=== PATIENT | male | born 1985 | race African-American/Black ===

== ENCOUNTER 2016-08-25 21:45 | Emergency (ER) | payer OTHER ==
[~2016-08-25] VITALS: Ht 180.3 cm; Wt 77.0 kg
[2016-08-25] MEDS ORDERED: MAGNESIUM/ALUMINUM HYDROXIDE/SIMETHICONE 30ML UDC PO ONE (23:15)
[2016-08-25] MEDS ORDERED: VISCOUS LIDOCAINE 2% 15 ML UDC PO ONE (23:15)
[2016-08-25] MEDS ORDERED: IBUPROFEN 400MG TABLET PO ONE (23:15)
[2016-08-25 23:30] LABS: EOSINOPHILS % 0.6 % (0.0-5.0); HEMATOCRIT. 36.6 % (42.0-52.0); HEMOGLOBIN. 11.7 g/dL (14.0-18.0); LYMPHOCYTES % 24.4 % (20.0-50.0); MEAN CORPUSCULAR VOLUME 80.9 fL (80.0-94.0); MEAN PLATELET VOLUME 10.4 fl (7.4-10.4); MONOCYTES % 6.3 % (2.0-8.0); NEUTROPHILS % 67.7 % (40.0-76.0); PLATELET 226 x1000/uL (130-400); RED BLOOD CELL COUNT 4.52 mill/uL (4.7-6.1); RED CELL DISTRIBUTION WIDTH 14.6 % (11.6-14.6)
[2016-08-25 23:34] LABS: D-DIMER 0.37 mg/L FEU (<0.50); INR 1.1
[2016-08-25 23:41] LABS: CARBON DIOXIDE 29 mEq/L (21-32); CHLORIDE 105 mEq/L (98-107); TROPONIN I < 0.02 ng/mL (0.00-0.04)
[2016-08-26 00:12] LABS: CREATINE KINASE 164 IU/L (39-308)
[2016-08-26 00:50] VITALS: BP 129/87
== END 2016-08-26 01:09 | disposition home or self-care (01) ==
LOC: ER 21:54
DX: R07.2 Precordial pain (principal); N28.9 Disorder of kidney and ureter, unspecified
CPT/HCPCS: 36415; 71010; 80053; 82550; 83690; 83880; 84484; 85025; 85379; 85610; 93005; 99285